=== PATIENT | female | born 1990 | race Two or more races ===

== ENCOUNTER 2016-08-11 01:16 | Emergency (ER) | payer OTHER ==
[~2016-08-11] VITALS: Ht 157.5 cm; Wt 45.4 kg
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
--- NOTE | 2016-08-11 01:22 | NUR ---
SHELIA RAPP ARRIVED AND ARE SPEAKING TO THE PT.
--- NOTE | 2016-08-11 01:24 | NUR ---
PT LEFT FOR RADIOLOGY VIA .
--- NOTE | 2016-08-11 01:40 | NUR ---
PT'S BOYFRIEND IS AT THE BEDSIDE SPEAKING TO THE [employer].
--- NOTE | 2016-08-11 01:40 | NUR ---
PT RETURNED FROM CT VIA WC.
--- NOTE | 2016-08-11 02:03 | NUR ---
DR. ROSEN IS AT THE BEDSIDE.
--- NOTE | 2016-08-11 02:23 | NUR ---
PT REFUSED CT.
--- NOTE | 2016-08-11 02:27 | NUR ---
Patient discharged to home in stable condition. Written and verbal after care instructions given. Patient verbalizes understanding of instruction AND RX. PT REFUSED TO SIGN ACI. MD NOTIFIED. PT AMBULATED OUT WITH A STEADY GAIT. PT WAS REFERRED TO DR. BRAY-ENT. PT'S VSS.
[2016-08-11 02:30] VITALS: BP 99/60
== END 2016-08-11 02:31 | disposition home or self-care (01) ==
LOC: ER 01:19
DX: S02.609A Fracture of mandible, unspecified, initial encounter for closed fracture (principal); Y04.8XXA Assault by other bodily force, initial encounter; Y93.9 Activity, unspecified; Y92.9 Unspecified place or not applicable; Y99.9 Unspecified external cause status
CPT/HCPCS: 70110; 99284; A4606; Z7610